=== PATIENT | female | born 2000 | race Asian ===

== ENCOUNTER 2024-12-25 19:42 | Emergency (ER) | payer SELFPAY ==
[~2024-12-25] VITALS: Ht 160 cm; Wt 63.6 kg
[2024-12-25] MEDS: IBUPROFEN 400 MG TABLET PO ONE (21:05)
[2024-12-25] MEDS: METOCLOPRAMIDE HCL 10 MG TABLET PO ONE (21:06)
[2024-12-25] MEDS: ACETAMINOPHEN 325 MG TABLET PO ONE (21:08)
[2024-12-25 22:34] VITALS: BP 125/77; PULSE 78; RESP 16; TEMP 97.3; O2SAT 100
== END 2024-12-25 23:35 | disposition still patient (30) ==
LOC: EMS 19:42
DX: S09.90XA Unspecified injury of head, initial encounter (principal); V43.52XA Car driver injured in collision with other type car in traffic accident, initial encounter; Y93.89 Activity, other specified; Y92.488 Other paved roadways as the place of occurrence of the external cause; Y99.8 Other external cause status
CPT/HCPCS: 99284; Z7502; Z7610